=== PATIENT | male | born 1940 | race Caucasian/White ===

== ENCOUNTER 2017-01-20 18:11 | Emergency (ER) | payer OTHER ==
[~2017-01-20] VITALS: Ht 172.7 cm; Wt 67.5 kg
[~2017-01-20 18:11] MED LIST: ADVAIR HFA120 INHALA IH; ALEVE220 M2 PO; AMOX TR-K CLV1 EAC4 PO; ANTIVERT25 MG PO; ASPIRIN81 M1 PO; ASPIRIN81 M2 PO; Aspirin E.C. PO; CILOSTAZOL100 MG PO; Ceftin PO; DIAZEPAM2 MG PO; ESOMEPRAZOLE MA40 MG PO; FLOMAX0.4 MG PO; HYDROCODON-ACE1 EAC7 PO; LIPITOR20 MG PO; LOPRESSOR50 MG PO; LOTREL 5/201 CAPSULE PO; MOTRIN400 MG PO; NEXIUM40 MG PO; NORVASC10 MG PO; Norvasc PO; PLETAL100 MG PO; PRILOSEC20 MG PO; PRILOSEC40 MG PO; PROAIR HFA8.5 GM IH; PROTONIX40 MG PO; Pletal PO; RANITIDINE HCL150 M1 PO; TOPROL XL50 MG PO; TRAMADOL HCL50 MG PO; Tylenol Regular Stre PO; ULTRAM50 MG PO; Ultram PO; VITAMIN D31000 UNIT PO; Vitamin D PO
[2017-01-20 19:11] LABS: EOSINOPHIL (%) 1.2 % (0-5); EOSINOPHIL COUNT 0.1 K/uL (0-0.3); HEMATOCRIT 40.7 % (38.0-50.0); IMMATURE GRANULOCYTE (%) 0.3 % (0.0-0.7); INSTRUMENT ABS NEUTROPHIL CT 7.6 K/uL; LYMPHOCYTE COUNT 1.5 K/uL (1.0-2.8); MCH 30.4 PG (29.0-34.0); MCHC 32.9 G/DL (30.0-36.0); MCV 92.3 FL (86-99); MEAN PLAT.VOLUME 12.1 uM^3 (9.0-12.4); MONOCYTE (%) 7.2 % (3-12); MONOCYTE COUNT 0.7 K/uL (0-0.8); NEUTROPHIL (%) 75.6 % (45-76); NEUTROPHIL COUNT 7.6 K/uL (1.8-6.4); PLATELET COUNT 176 K/uL (156-360); RBC DIS.WIDTH-CV 13.2 % (11.8-14.6); RBC DIS.WIDTH-SD 44.5 % (39-53); RED BLOOD COUNT 4.41 M/uL (4.00-5.50)
[2017-01-20 19:22] LABS: CHLORIDE 96 mEq/L (99-109); POTASSIUM 3.9 mEq/L (3.7-5.4); SODIUM 133 mEq/L (136-147)
[2017-01-20 19:24] LABS: GLUCOSE 81 mg/dL (70-99)
[2017-01-20 19:26] LABS: ANION GAP 14 MEQ/L (2-14)
[2017-01-20 19:27] LABS: SERUM ETHYL ALCOHOL 211 mg/dL
[2017-01-20 19:28] LABS: GFR ESTIMATE (CALCULATED) > 59 mL/min/
[2017-01-20 19:29] LABS: UREA NITROGEN (BUN) 13 mg/dL (9-23)
[2017-01-20 19:47] LABS: ADD MIUA? YES; BILIRUBIN NEGATIVE; BLOOD SMALL; COLOR STRAW ((YELLOW)); GLUCOSE (STRIP) NEGATIVE; KETONES NEGATIVE; LEUKOCYTES NEGATIVE; NITRITE NEGATIVE; PROTEIN (STRIP) NEGATIVE; SPECIFIC GRAVITY 1.004 (1.000-1.030); UROBILINOGEN 0.2 MG/DL (0.2-1.0)
[2017-01-20 19:56] LABS: AMPHETAMINE NEGATIVE (500 ng/mL); BARBITURATES NEGATIVE (200 ng/mL); BENZODIAZEPINES NEGATIVE (150 ng/mL); COCAINE NEGATIVE (150 ng/mL); INTERNAL CONTROLS VALID? YES; METHADONE NEGATIVE (200 ng/mL); METHAMPHETAMINE NEGATIVE (500 ng/mL); OPIATES (MORPHINE) NEGATIVE (100 ng/mL); OXYCODONE NEGATIVE (100 ng/mL); PHENCYCLIDINE NEGATIVE (25 ng/mL); PROPOXYPHENE NEGATIVE (300 ng/mL); THC CANNABINOIDS NEGATIVE (50 ng/mL); TRICYCLIC ANTIDEPRESSANTS NEGATIVE (300 ng/mL)
[2017-01-20 20:17] LABS: BACTERIA NONE SEEN /HPF; CASTS NONE SEEN /LPF; CRYSTALS NONE SEEN; EPITHELIAL CELLS RARE /HPF; MUCUS NONE SEEN /LPF; RED BLOOD CELLS 0-5 /HPF (0-5); WHITE BLOOD CELLS RARE /HPF (0-5)
[2017-01-20 22:26] VITALS: BP 143/72
== END 2017-01-20 22:27 | disposition home or self-care (01) ==
LOC: EME 18:11
PROVIDERS: Emergency Medicine
DX: S01.81XA Laceration without foreign body of other part of head, initial encounter (principal); S09.8XXA Other specified injuries of head, initial encounter; F10.129 Alcohol abuse with intoxication, unspecified; W18.30XA Fall on same level, unspecified, initial encounter; Z23 Encounter for immunization; J32.0 Chronic maxillary sinusitis; I10 Essential (primary) hypertension; J44.9 Chronic obstructive pulmonary disease, unspecified; Z86.73 Personal history of transient ischemic attack (TIA), and cerebral infarction without residual deficits; Z90.49 Acquired absence of other specified parts of digestive tract; Z79.82 Long term (current) use of aspirin; F17.200 Nicotine dependence, unspecified, uncomplicated; Y90.7 Blood alcohol level of 200-239 mg/100 ml
CPT/HCPCS: 70450; 70486; 80048; 81003; 85025; 99281; 99284; G0480

== ENCOUNTER 2017-06-30 03:35 | Inpatient (IN) | payer OTHER ==
[~2017-06-30] VITALS: Ht 172.7 cm; Wt 79.0 kg
[~2017-06-30 03:35] MED LIST changes: -ASPIRIN81 M2 PO; +LO-DOSE ASPIRIN81 M2 PO
[2017-06-30 04:25] LABS: HEMATOCRIT 37.2 % (38.0-50.0); HEMOGLOBIN 12.7 G/DL (12.5-16.6); MCH 29.9 PG (29.0-34.0); MCHC 34.1 G/DL (30.0-36.0); RBC DIS.WIDTH-CV 13.2 % (11.8-14.6); RBC DIS.WIDTH-SD 42.5 % (39-53); RED BLOOD COUNT 4.25 M/uL (4.00-5.50); WHITE BLOOD COUNT 24.4 K/uL (4.1-10.2)
[2017-06-30 04:26] LABS: MCV 87.5 FL (86-99)
[2017-06-30 04:38] LABS: ALBUMIN 3.4 g/dL (3.2-4.8); CHLORIDE 90 mEq/L (99-109); POTASSIUM 2.8 mEq/L (3.7-5.4); SODIUM 128 mEq/L (136-147)
[2017-06-30 04:41] LABS: GLUCOSE 116 mg/dL (70-99); TOTAL PROTEIN 6.9 g/dL (6.4-8.3)
[2017-06-30 04:43] LABS: TOTAL BILIRUBIN 1.7 mg/dL (0.0-1.0)
[2017-06-30 04:44] LABS: ALKALINE PHOSPHATASE 70 IU/L (3-129); GFR ESTIMATE (CALCULATED) 35 mL/min/ (58.99-99999)
[2017-06-30 04:47] LABS: ALT (GPT) 9 IU/L (3-49); TROP-I INTERPRETATION NEGATIVE; TROPONIN-I 0.02 ng/mL (0.0-0.30)
[2017-06-30 04:48] LABS: LIPASE 13 U/L (1.0-51.0)
[2017-06-30 05:03] LABS: INTER. NORMALIZED RATIO 1.4
[2017-06-30 05:05] LABS: PTT 27.7 SEC (25-37)
[2017-06-30 05:25] LABS: PHOSPHORUS 2.9 mg/dL (2.5-4.9)
[2017-06-30 05:26] LABS: UREA NITROGEN (BUN) 35 mg/dL (9-23)
[2017-06-30 05:27] LABS: AST (GOT) 17 IU/L (2-34)
[2017-06-30 05:29] LABS: MAGNESIUM 0.4 mg/dL (1.3-2.7)
[2017-06-30 06:19] LABS: PLAT.SUFFICIENCY ADEQUATE; PLATELET COUNT 179 K/uL (156-360)
[2017-06-30] MEDS ORDERED: OMEPRAZOLE40 M1 PO (11:34)
[2017-06-30 11:36] VITALS: BP 158/67
[2017-06-30 12:52] VITALS: BP 90/54
[2017-06-30 14:59] LABS: CHLORIDE 99 MEQ/L (99-109); CREATININE 1.7 MG/DL (0.6-1.3); GFR ESTIMATE (CALCULATED) 42 mL/min/ (58.99-99999); GLUCOSE 143 mg/dL (70-99); SODIUM 131 MEQ/L (136-147); UREA NITROGEN (BUN) 28 mg/dL (9-23)
[2017-06-30 15:00] LABS: MAGNESIUM 0.6 mg/dl (1.3-2.7)
[2017-06-30 15:10] VITALS: BP 94/51
[2017-06-30 16:15] VITALS: BP 100/56
[2017-06-30 18:48] LABS: INTACT PARATHYROID HORMONE 45 pg/mL (10-69)
[2017-06-30 19:43] LABS: MAGNESIUM 0.9 mg/dl (1.3-2.7)
[2017-06-30 20:01] VITALS: BP 120/65
[2017-07-01 00:18] VITALS: BP 118/55
[2017-07-01 04:05] VITALS: BP 119/59
[2017-07-01 06:52] LABS: BASOPHIL (%) 0.1 % (0-1); EOSINOPHIL (%) 0.1 % (0-5); HEMATOCRIT 34.8 % (38.0-50.0); HEMOGLOBIN 11.3 G/DL (12.5-16.6); IMMATURE GRANULOCYTE (%) 2.3 % (0.0-0.7); LYMPHOCYTE (%) 4.4 % (15-42); LYMPHOCYTE COUNT 0.7 K/uL (1.0-2.8); MCH 28.9 PG (29.0-34.0); MCHC 32.5 G/DL (30.0-36.0); MONOCYTE (%) 7.8 % (3-12); MONOCYTE COUNT 1.3 K/uL (0-0.8); NEUTROPHIL (%) 85.3 % (45-76); NEUTROPHIL COUNT 13.7 K/uL (1.8-6.4); PLATELET COUNT 161 K/uL (156-360); RBC DIS.WIDTH-CV 13.4 % (11.8-14.6); RBC DIS.WIDTH-SD 44.1 % (39-53); RED BLOOD COUNT 3.91 M/uL (4.00-5.50)
[2017-07-01 06:58] VITALS: BP 122/63
[2017-07-01 07:00] LABS: INTER. NORMALIZED RATIO 1.1
[2017-07-01 07:03] LABS: PTT 26.8 SEC (25-37)
[2017-07-01 07:15] LABS: ALBUMIN 2.8 G/DL (3.2-4.8); ALKALINE PHOSPHATASE 60 IU/L (3-129); ALT (GPT) 7 IU/L (3-49); AST (GOT) 15 IU/L (2-34); CHLORIDE 108 MEQ/L (99-109); GLUCOSE 130 mg/dL (70-99); PHOSPHORUS 1.6 mg/dL (2.5-4.9); POTASSIUM 3.4 MEQ/L (3.7-5.4); SODIUM 137 MEQ/L (136-147); TOTAL BILIRUBIN 0.7 MG/DL (0.0-1.0); UREA NITROGEN (BUN) 15 mg/dL (9-23)
[2017-07-01 07:16] LABS: CREATININE 1.1 MG/DL (0.6-1.3); GFR ESTIMATE (CALCULATED) > 59 mL/min/ (58.99-99999); MAGNESIUM 1.2 mg/dl (1.3-2.7)
[2017-07-01 11:52] VITALS: BP 157/70
[2017-07-01 11:52] LABS: HEMOGLOBIN A1c (GLYCOHEMOGLOB) 5.7 % (Below 5.7)
[2017-07-01 16:21] VITALS: BP 145/67
[2017-07-01 16:26] LABS: APPEARANCE SL.HAZY ((CLEAR)); BILIRUBIN NEGATIVE; BLOOD MODERATE; COLOR YELLOW ((YELLOW)); GLUCOSE (STRIP) NEGATIVE; KETONES NEGATIVE; LEUKOCYTES NEGATIVE; NITRITE NEGATIVE; PROTEIN (STRIP) 30; SPECIFIC GRAVITY 1.019 (1.000-1.030); UROBILINOGEN 0.2 MG/DL (0.2-1.0)
[2017-07-01 16:53] LABS: EPITHELIAL CELLS RARE /HPF; MUCUS RARE /LPF; RED BLOOD CELLS 0-5 /HPF (0-5); WHITE BLOOD CELLS 0-5 /HPF (0-5)
[2017-07-01 16:54] LABS: BACTERIA 1+ /HPF; UCUL ADDED? NO
[2017-07-01 20:51] VITALS: BP 135/74
[2017-07-02 00:16] VITALS: BP 140/78
[2017-07-02 03:55] VITALS: BP 148/84
[2017-07-02 06:18] LABS: BASOPHIL (%) 0.3 % (0-1); EOSINOPHIL (%) 0.6 % (0-5); EOSINOPHIL COUNT 0.1 K/uL (0-0.3); HEMATOCRIT 40.4 % (38.0-50.0); IMMATURE GRANULOCYTE (%) 0.5 % (0.0-0.7); LYMPHOCYTE (%) 7.3 % (15-42); MCH 29.4 PG (29.0-34.0); MCHC 32.2 G/DL (30.0-36.0); MCV 91.4 FL (86-99); MONOCYTE (%) 7.5 % (3-12); MONOCYTE COUNT 1.1 K/uL (0-0.8); NEUTROPHIL (%) 83.8 % (45-76); NEUTROPHIL COUNT 11.7 K/uL (1.8-6.4); PLATELET COUNT 191 K/uL (156-360); RBC DIS.WIDTH-CV 13.6 % (11.8-14.6); RED BLOOD COUNT 4.42 M/uL (4.00-5.50)
[2017-07-02 06:46] LABS: ALBUMIN 2.8 G/DL (3.2-4.8); ALKALINE PHOSPHATASE 56 IU/L (3-129); ALT (GPT) 10 IU/L (3-49); AST (GOT) 18 IU/L (2-34); CHLORIDE 107 MEQ/L (99-109); GFR ESTIMATE (CALCULATED) > 59 mL/min/ (58.99-99999); GLUCOSE 99 mg/dL (70-99); PHOSPHORUS 1.8 mg/dL (2.5-4.9); POTASSIUM 3.4 MEQ/L (3.7-5.4); SODIUM 137 MEQ/L (136-147); TOTAL BILIRUBIN 0.6 MG/DL (0.0-1.0); TOTAL PROTEIN 5.7 G/DL (6.4-8.3); UREA NITROGEN (BUN) 6 mg/dL (9-23)
[2017-07-02 07:26] VITALS: BP 166/90
[2017-07-02 11:08] VITALS: BP 133/63
[2017-07-02 20:00] VITALS: BP 165/82
[2017-07-02 23:52] VITALS: BP 146/73
[2017-07-03 04:14] VITALS: BP 137/65
[2017-07-03 06:52] LABS: BASOPHIL (%) 0.3 % (0-1); EOSINOPHIL COUNT 0.1 K/uL (0-0.3); HEMATOCRIT 34.6 % (38.0-50.0); HEMOGLOBIN 11.2 G/DL (12.5-16.6); IMMATURE GRANULOCYTE (%) 0.6 % (0.0-0.7); LYMPHOCYTE (%) 5.8 % (15-42); LYMPHOCYTE COUNT 0.8 K/uL (1.0-2.8); MCH 29.3 PG (29.0-34.0); MCHC 32.4 G/DL (30.0-36.0); MCV 90.6 FL (86-99); MONOCYTE (%) 8.7 % (3-12); MONOCYTE COUNT 1.2 K/uL (0-0.8); NEUTROPHIL (%) 83.6 % (45-76); NEUTROPHIL COUNT 11.9 K/uL (1.8-6.4); NRBC (%) 0.4 /100 WBC (0-0); PLATELET COUNT 238 K/uL (156-360); RBC DIS.WIDTH-CV 13.5 % (11.8-14.6); RBC DIS.WIDTH-SD 45.1 % (39-53); RED BLOOD COUNT 3.82 M/uL (4.00-5.50); WHITE BLOOD COUNT 14.3 K/uL (4.1-10.2)
[2017-07-03 07:07] VITALS: BP 154/72
[2017-07-03 07:22] LABS: ALBUMIN 2.7 G/DL (3.2-4.8); ALKALINE PHOSPHATASE 62 IU/L (3-129); ALT (GPT) 10 IU/L (3-49); AST (GOT) 15 IU/L (2-34); CHLORIDE 104 MEQ/L (99-109); CREATININE 0.9 MG/DL (0.6-1.3); DIRECT BILIRUBIN 0.2 mg/dL (0.0-0.3); GFR ESTIMATE (CALCULATED) > 59 mL/min/ (58.99-99999); GLUCOSE 116 mg/dL (70-99); PHOSPHORUS 1.8 mg/dL (2.5-4.9); SODIUM 136 MEQ/L (136-147); TOTAL BILIRUBIN 0.7 MG/DL (0.0-1.0); TOTAL PROTEIN 5.4 G/DL (6.4-8.3); UREA NITROGEN (BUN) 6 mg/dL (9-23)
[2017-07-03 11:51] VITALS: BP 124/80
[2017-07-03 17:01] VITALS: BP 136/73
[2017-07-03 20:25] VITALS: BP 158/82
[2017-07-04 00:06] VITALS: BP 142/73
[2017-07-04 04:17] VITALS: BP 177/81
[2017-07-04 06:36] LABS: HEMATOCRIT 33.7 % (38.0-50.0); HEMOGLOBIN 11.2 G/DL (12.5-16.6); MCH 29.7 PG (29.0-34.0); MCHC 33.2 G/DL (30.0-36.0); MCV 89.4 FL (86-99); RBC DIS.WIDTH-CV 13.5 % (11.8-14.6); RBC DIS.WIDTH-SD 44.4 % (39-53); RED BLOOD COUNT 3.77 M/uL (4.00-5.50); WHITE BLOOD COUNT 12.9 K/uL (4.1-10.2)
[2017-07-04 07:06] LABS: PLAT.SUFFICIENCY ADEQUATE; PLATELET COUNT 251 K/uL (156-360)
[2017-07-04 07:14] LABS: ALBUMIN 2.8 G/DL (3.2-4.8); ALKALINE PHOSPHATASE 55 IU/L (3-129); CHLORIDE 98 MEQ/L (99-109); CREATININE 0.9 MG/DL (0.6-1.3); GFR ESTIMATE (CALCULATED) > 59 mL/min/ (58.99-99999); GLUCOSE 120 mg/dL (70-99); POTASSIUM 3.8 MEQ/L (3.7-5.4); SODIUM 136 MEQ/L (136-147); TOTAL BILIRUBIN 0.6 MG/DL (0.0-1.0); TOTAL PROTEIN 5.5 G/DL (6.4-8.3); UREA NITROGEN (BUN) 6 mg/dL (9-23)
[2017-07-04 07:16] LABS: ALT (GPT) 43 IU/L (3-49); AST (GOT) 78 IU/L (2-34)
[2017-07-04 07:30] VITALS: BP 152/85
[2017-07-04 12:03] VITALS: BP 157/88
[2017-07-04 19:55] VITALS: BP 126/72
[2017-07-04 23:40] VITALS: BP 143/79
[2017-07-05 03:45] VITALS: BP 146/77
[2017-07-05 07:23] LABS: BASOPHIL (%) 0.1 % (0-1); EOSINOPHIL (%) 0.1 % (0-5); HEMATOCRIT 31.6 % (38.0-50.0); HEMOGLOBIN 10.2 G/DL (12.5-16.6); IMMATURE GRANULOCYTE (%) 0.7 % (0.0-0.7); LYMPHOCYTE (%) 5.1 % (15-42); LYMPHOCYTE COUNT 0.7 K/uL (1.0-2.8); MCH 28.7 PG (29.0-34.0); MCHC 32.3 G/DL (30.0-36.0); MONOCYTE (%) 8.5 % (3-12); MONOCYTE COUNT 1.1 K/uL (0-0.8); NEUTROPHIL (%) 85.5 % (45-76); NEUTROPHIL COUNT 11.4 K/uL (1.8-6.4); PLATELET COUNT 228 K/uL (156-360); RBC DIS.WIDTH-CV 13.5 % (11.8-14.6); RBC DIS.WIDTH-SD 44.3 % (39-53); RED BLOOD COUNT 3.55 M/uL (4.00-5.50); WHITE BLOOD COUNT 13.3 K/uL (4.1-10.2)
[2017-07-05 07:55] LABS: CHLORIDE 102 MEQ/L (99-109); CREATININE 0.9 MG/DL (0.6-1.3); GFR ESTIMATE (CALCULATED) > 59 mL/min/ (58.99-99999); GLUCOSE 117 mg/dL (70-99); POTASSIUM 3.7 MEQ/L (3.7-5.4); SODIUM 138 MEQ/L (136-147); UREA NITROGEN (BUN) 6 mg/dL (9-23)
[2017-07-05 08:21] VITALS: BP 135/83
[2017-07-05 11:25] VITALS: BP 130/71
[2017-07-05 14:21] VITALS: BP 120/63
[2017-07-05 20:03] VITALS: BP 153/80
[2017-07-05 23:44] VITALS: BP 121/60
[2017-07-06] VITALS (7 sets, daily range): BP systolic 109–142; BP diastolic 58–79
[2017-07-06 05:50] LABS: BASOPHIL (%) 0.1 % (0-1); EOSINOPHIL (%) 1.4 % (0-5); EOSINOPHIL COUNT 0.2 K/uL (0-0.3); HEMATOCRIT 31.4 % (38.0-50.0); HEMOGLOBIN 10.3 G/DL (12.5-16.6); LYMPHOCYTE (%) 6.8 % (15-42); LYMPHOCYTE COUNT 0.9 K/uL (1.0-2.8); MCH 29.9 PG (29.0-34.0); MCHC 32.8 G/DL (30.0-36.0); MONOCYTE (%) 7.5 % (3-12); NEUTROPHIL (%) 83.2 % (45-76); PLATELET COUNT 220 K/uL (156-360); RBC DIS.WIDTH-CV 13.8 % (11.8-14.6); RBC DIS.WIDTH-SD 46.1 % (39-53); RED BLOOD COUNT 3.45 M/uL (4.00-5.50); WHITE BLOOD COUNT 13.2 K/uL (4.1-10.2)
[2017-07-06 06:30] LABS: CHLORIDE 103 MEQ/L (99-109); CREATININE 0.8 MG/DL (0.6-1.3); GFR ESTIMATE (CALCULATED) > 59 mL/min/ (58.99-99999); GLUCOSE 95 mg/dL (70-99); POTASSIUM 3.6 MEQ/L (3.7-5.4); SODIUM 138 MEQ/L (136-147); UREA NITROGEN (BUN) 5 mg/dL (9-23)
[2017-07-07 04:47] VITALS: BP 123/68
[2017-07-07 06:40] LABS: BASOPHIL (%) 0.2 % (0-1); EOSINOPHIL (%) 0.1 % (0-5); HEMOGLOBIN 10.8 G/DL (12.5-16.6); IMMATURE GRANULOCYTE (%) 0.6 % (0.0-0.7); LYMPHOCYTE (%) 3.1 % (15-42); LYMPHOCYTE COUNT 0.3 K/uL (1.0-2.8); MCH 28.7 PG (29.0-34.0); MCHC 31.8 G/DL (30.0-36.0); MCV 90.4 FL (86-99); MONOCYTE (%) 1.4 % (3-12); MONOCYTE COUNT 0.2 K/uL (0-0.8); NEUTROPHIL (%) 94.6 % (45-76); NEUTROPHIL COUNT 10.2 K/uL (1.8-6.4); RBC DIS.WIDTH-CV 13.8 % (11.8-14.6); RBC DIS.WIDTH-SD 46.3 % (39-53); RED BLOOD COUNT 3.76 M/uL (4.00-5.50); WHITE BLOOD COUNT 10.8 K/uL (4.1-10.2)
[2017-07-07 06:41] LABS: PLATELET COUNT 287 K/uL (156-360)
[2017-07-07 07:05] LABS: ALBUMIN 2.5 G/DL (3.2-4.8); ALKALINE PHOSPHATASE 63 IU/L (3-129); ALT (GPT) 23 IU/L (3-49); CHLORIDE 103 MEQ/L (99-109); CREATININE 0.8 MG/DL (0.6-1.3); GFR ESTIMATE (CALCULATED) > 59 mL/min/ (58.99-99999); POTASSIUM 4.3 MEQ/L (3.7-5.4); SODIUM 139 MEQ/L (136-147); TOTAL PROTEIN 5.5 G/DL (6.4-8.3); UREA NITROGEN (BUN) 6 mg/dL (9-23)
[2017-07-07 07:07] LABS: AST (GOT) 21 IU/L (2-34); GLUCOSE 156 mg/dL (70-99); MAGNESIUM 1.6 mg/dl (1.3-2.7); TOTAL BILIRUBIN 0.4 MG/DL (0.0-1.0)
[2017-07-07 09:03] VITALS: BP 148/76
[2017-07-07 19:25] VITALS: BP 162/85
[2017-07-07 23:03] VITALS: BP 147/80
[2017-07-08 04:18] VITALS: BP 156/86
[2017-07-08 08:30] VITALS: BP 157/76
[2017-07-08 12:31] VITALS: BP 134/76
[2017-07-08 15:28] VITALS: BP 133/70
[2017-07-08 19:54] VITALS: BP 142/74
[2017-07-08 23:29] VITALS: BP 145/70
[2017-07-09 03:39] VITALS: BP 154/70
[2017-07-09 07:45] VITALS: BP 152/78
[2017-07-09 11:50] VITALS: BP 171/76
[2017-07-09 18:43] LABS: HEMATOCRIT 34.9 % (38.0-50.0); HEMOGLOBIN 11.4 G/DL (12.5-16.6); MCH 29.2 PG (29.0-34.0); MCHC 32.7 G/DL (30.0-36.0); MCV 89.5 FL (86-99); NRBC (%) 0.5 /100 WBC (0-0); RBC DIS.WIDTH-CV 13.8 % (11.8-14.6); RBC DIS.WIDTH-SD 45.4 % (39-53); WHITE BLOOD COUNT 10.5 K/uL (4.1-10.2)
[2017-07-09 19:07] LABS: ALKALINE PHOSPHATASE 80 IU/L (3-129); CHLORIDE 95 MEQ/L (99-109); CREATININE 0.7 MG/DL (0.6-1.3); GFR ESTIMATE (CALCULATED) > 59 mL/min/ (58.99-99999); GLUCOSE 186 mg/dL (70-99); POTASSIUM 4.3 MEQ/L (3.7-5.4); SODIUM 134 MEQ/L (136-147); TOTAL BILIRUBIN 0.4 MG/DL (0.0-1.0); TOTAL PROTEIN 6.2 G/DL (6.4-8.3); UREA NITROGEN (BUN) 11 mg/dL (9-23)
[2017-07-09 19:08] LABS: ALT (GPT) 58 IU/L (3-49); AST (GOT) 58 IU/L (2-34)
[2017-07-09 19:10] LABS: HEMATOLOGY COMMENT 1 SN; PLAT.SUFFICIENCY ADEQUATE; PLATELET COUNT 326 K/uL (156-360)
[2017-07-09 20:15] VITALS: BP 127/60
[2017-07-09 23:59] VITALS: BP 142/71
[2017-07-10 03:34] VITALS: BP 137/72
[2017-07-10 06:29] LABS: CREATININE 0.9 MG/DL (0.6-1.3); GFR ESTIMATE (CALCULATED) > 59 mL/min/ (58.99-99999)
[2017-07-10 07:57] VITALS: BP 133/64
[2017-07-10 11:25] VITALS: BP 112/73
[2017-07-10 16:35] VITALS: BP 124/69
[2017-07-10 20:18] VITALS: BP 122/65
[2017-07-10 23:34] VITALS: BP 116/80
[2017-07-11 04:36] VITALS: BP 126/61
[2017-07-11 04:41] VITALS: BP 134/83
[2017-07-11 05:45] LABS: MAGNESIUM 1.7 mg/dl (1.3-2.7)
[2017-07-11 05:57] LABS: PHOSPHORUS 4.5 mg/dL (2.5-4.9)
[2017-07-11 08:32] VITALS: BP 126/65
[2017-07-11 13:41] VITALS: BP 102/58
[2017-07-11] MEDS ORDERED: LOPRESSOR25 MG PO (15:13)
[2017-07-11] MEDS ORDERED: DUONEB 2.5-0.5 M3 ML AEROSOL (15:13)
[2017-07-11] MEDS ORDERED: TYLENOL REGULA325 MG PO (15:14)
[2017-07-11] MEDS ORDERED: AMLODIPINE BESYL5 MG PO (15:14)
[2017-07-11] MEDS ORDERED: FOLIC ACID1 MG PO (15:15)
[2017-07-11] MEDS ORDERED: Thiamine,Vitamin B1 PO (15:15)
[2017-07-11 15:39] VITALS: BP 116/64
== END 2017-07-11 19:34 | DRG 853 ==
LOC: EME 03:35 → 3EAST 06:30 → EDOF 06:30 → 2EASTP 06:30 → ENRESERV 06:39 → EDOF 07:07 → ENRESERV 09:40 → 2EASTP 11:37 → 2EAST 07-04 16:13 → ENRESERV 07-04 16:13 → 3EAST 07-05 14:04
PROVIDERS: Emergency Medicine; Internal Medicine; Surgery
DX: A41.9 Sepsis, unspecified organism (principal); K80.00 Calculus of gallbladder with acute cholecystitis without obstruction; N17.9 Acute kidney failure, unspecified; E87.2 Acidosis; E87.1 Hypo-osmolality and hyponatremia; E87.6 Hypokalemia; E83.42 Hypomagnesemia; E83.51 Hypocalcemia; E86.0 Dehydration; E86.1 Hypovolemia; E87.8 Other disorders of electrolyte and fluid balance, not elsewhere classified; J44.1 Chronic obstructive pulmonary disease with (acute) exacerbation; J69.0 Pneumonitis due to inhalation of food and vomit; I47.2 Ventricular tachycardia; T81.82XA Emphysema (subcutaneous) resulting from a procedure, initial encounter; R41.0 Disorientation, unspecified; T40.605A Adverse effect of unspecified narcotics, initial encounter; R09.02 Hypoxemia; L72.0 Epidermal cyst; K82.8 Other specified diseases of gallbladder; D64.9 Anemia, unspecified; I11.9 Hypertensive heart disease without heart failure; I25.10 Atherosclerotic heart disease of native coronary artery without angina pectoris; E78.5 Hyperlipidemia, unspecified; I49.3 Ventricular premature depolarization; F10.10 Alcohol abuse, uncomplicated; I73.9 Peripheral vascular disease, unspecified; K21.9 Gastro-esophageal reflux disease without esophagitis; N40.1 Benign prostatic hyperplasia with lower urinary tract symptoms; F17.210 Nicotine dependence, cigarettes, uncomplicated; Z86.718 Personal history of other venous thrombosis and embolism; Z86.73 Personal history of transient ischemic attack (TIA), and cerebral infarction without residual deficits; Z87.440 Personal history of urinary (tract) infections; Z79.82 Long term (current) use of aspirin; Z79.02 Long term (current) use of antithrombotics/antiplatelets
CPT/HCPCS: 70450; 71045; 71046; 74176; 74230; 78227; 80048; 80048 91; 80053; 80202; 81003; 82248; 82306; 82310; 82565; 83036; 83605; 83690; 83735; 83880; 83970; 84100; 84153; 84484; 85025; 85027; 85610; 85730; 87040; 88304; 92610 GN; 92611 GN; 93005; 94640; 94640 76; 94760; 94799; 97530 GO; 97530 GP; 99202; 99281; 99285; A9537; J0456; J0610; J1100; J1170; J1650; J2270; J2405; J2543; J2920; J3370; J3411; J3475; J3480; J3486; J7030; J7040; J7042; J7050; J7512; S0020; S0028; S0030; S0074

== ENCOUNTER 2017-08-26 08:53 | Inpatient (IN) | payer OTHER ==
[~2017-08-26] VITALS: Ht 172.7 cm; Wt 65.6 kg
[~2017-08-26 08:53] MED LIST changes: +AMLODIPINE BESYL5 MG PO; +DUONEB 2.5-0.5 M3 ML AEROSOL; +FOLIC ACID1 MG PO; +LOPRESSOR25 MG PO; +OMEPRAZOLE40 M1 PO; +TYLENOL REGULA325 MG PO; +Thiamine,Vitamin B1 PO
[2017-08-26 09:42] LABS: HEMATOCRIT 37.3 % (38.0-50.0); MCH 28.6 PG (29.0-34.0); MCHC 32.2 G/DL (30.0-36.0); PLATELET COUNT 228 K/uL (156-360); RBC DIS.WIDTH-CV 16.2 % (11.8-14.6); RBC DIS.WIDTH-SD 52.7 % (39-53); WHITE BLOOD COUNT 7.8 K/uL (4.1-10.2)
[2017-08-26 09:44] LABS: RED BLOOD COUNT 4.19 M/uL (4.00-5.50)
[2017-08-26 09:52] LABS: ALBUMIN 3.5 g/dL (3.2-4.8); CHLORIDE 103 mEq/L (99-109); POTASSIUM 3.6 mEq/L (3.7-5.4); SODIUM 141 mEq/L (136-147)
[2017-08-26 09:55] LABS: GLUCOSE 98 mg/dL (70-99); TOTAL PROTEIN 7.1 g/dL (6.4-8.3)
[2017-08-26 09:57] LABS: TOTAL BILIRUBIN 0.4 mg/dL (0.0-1.0)
[2017-08-26 09:58] LABS: ALKALINE PHOSPHATASE 103 IU/L (3-129)
[2017-08-26 09:59] LABS: CREATININE 1.2 mg/dL (0.6-1.3); GFR ESTIMATE (CALCULATED) > 59 mL/min/ (58.99-99999)
[2017-08-26 10:00] LABS: AST (GOT) 17 IU/L (2-34); DIRECT BILIRUBIN 0.2 mg/dL (0.0-0.3); UREA NITROGEN (BUN) 10 mg/dL (9-23)
[2017-08-26 10:01] LABS: ALT (GPT) 11 IU/L (3-49)
[2017-08-26] MEDS ORDERED: LOSARTAN POTASS50 MG PO (12:31)
[2017-08-26] MEDS ORDERED: AMIODARONE HCL200 MG PO (12:31)
[2017-08-26] MEDS ORDERED: BREO ELLIPTA I1 EACH IH (15:00)
[2017-08-26 15:20] VITALS: BP 165/74
[2017-08-26 20:02] VITALS: BP 140/74
[2017-08-27 00:15] VITALS: BP 154/73
[2017-08-27 04:50] VITALS: BP 152/70
[2017-08-27 08:11] VITALS: BP 141/75
[2017-08-27 11:34] VITALS: BP 144/74
[2017-08-27 12:20] LABS: BASOPHIL (%) 0.9 % (0-1); BASOPHIL COUNT 0.1 K/uL (0-0.1); EOSINOPHIL COUNT 0.2 K/uL (0-0.3); HEMATOCRIT 38.6 % (38.0-50.0); HEMOGLOBIN 11.8 G/DL (12.5-16.6); IMMATURE GRANULOCYTE (%) 0.2 % (0.0-0.7); LYMPHOCYTE (%) 16.6 % (15-42); LYMPHOCYTE COUNT 1.3 K/uL (1.0-2.8); MCH 27.3 PG (29.0-34.0); MCHC 30.6 G/DL (30.0-36.0); MCV 89.1 FL (86-99); MONOCYTE (%) 8.2 % (3-12); MONOCYTE COUNT 0.7 K/uL (0-0.8); NEUTROPHIL (%) 71.1 % (45-76); NEUTROPHIL COUNT 5.8 K/uL (1.8-6.4); PLATELET COUNT 241 K/uL (156-360); RBC DIS.WIDTH-CV 16.1 % (11.8-14.6); RBC DIS.WIDTH-SD 52.9 % (39-53); RED BLOOD COUNT 4.33 M/uL (4.00-5.50); WHITE BLOOD COUNT 8.1 K/uL (4.1-10.2)
[2017-08-27 12:47] LABS: CHLORIDE 102 MEQ/L (99-109); CREATININE 1.1 MG/DL (0.6-1.3); GFR ESTIMATE (CALCULATED) > 59 mL/min/ (58.99-99999); GLUCOSE 80 mg/dL (70-99); POTASSIUM 3.7 MEQ/L (3.7-5.4); SODIUM 143 MEQ/L (136-147); UREA NITROGEN (BUN) 8 mg/dL (9-23)
[2017-08-27 15:26] LABS: APPEARANCE CLEAR ((CLEAR)); BILIRUBIN NEGATIVE; BLOOD SMALL; COLOR YELLOW ((YELLOW)); GLUCOSE (STRIP) NEGATIVE; KETONES 5; LEUKOCYTES MODERATE; NITRITE POSITIVE; PROTEIN (STRIP) NEGATIVE; SPECIFIC GRAVITY 1.012 (1.000-1.030)
[2017-08-27 15:28] VITALS: BP 144/69
[2017-08-27 15:36] LABS: BACTERIA NONE SEEN /HPF; EPITHELIAL CELLS NONE SEEN /HPF; MUCUS NONE SEEN /LPF; RED BLOOD CELLS 0-5 /HPF (0-5); WHITE BLOOD CELLS 40-50 /HPF (0-5)
[2017-08-27 23:05] VITALS: BP 145/69
[2017-08-28 06:37] LABS: BASOPHIL (%) 0.4 % (0-1); EOSINOPHIL (%) 3.3 % (0-5); EOSINOPHIL COUNT 0.3 K/uL (0-0.3); HEMATOCRIT 36.2 % (38.0-50.0); HEMOGLOBIN 11.4 G/DL (12.5-16.6); IMMATURE GRANULOCYTE (%) 0.5 % (0.0-0.7); LYMPHOCYTE (%) 12.2 % (15-42); MCH 27.6 PG (29.0-34.0); MCHC 31.5 G/DL (30.0-36.0); MCV 87.7 FL (86-99); MONOCYTE (%) 9.3 % (3-12); MONOCYTE COUNT 0.8 K/uL (0-0.8); NEUTROPHIL (%) 74.3 % (45-76); NEUTROPHIL COUNT 6.1 K/uL (1.8-6.4); PLATELET COUNT 229 K/uL (156-360); RBC DIS.WIDTH-SD 51.6 % (39-53); RED BLOOD COUNT 4.13 M/uL (4.00-5.50); WHITE BLOOD COUNT 8.2 K/uL (4.1-10.2)
[2017-08-28 07:20] LABS: CHLORIDE 99 MEQ/L (99-109); CREATININE 1.1 MG/DL (0.6-1.3); GFR ESTIMATE (CALCULATED) > 59 mL/min/ (58.99-99999); POTASSIUM 3.2 MEQ/L (3.7-5.4); SODIUM 143 MEQ/L (136-147); UREA NITROGEN (BUN) 7 mg/dL (9-23)
[2017-08-28 07:27] LABS: GLUCOSE 102 mg/dL (70-99)
[2017-08-28 08:12] VITALS: BP 142/67
[2017-08-28 15:33] VITALS: BP 137/67
[2017-08-28 23:28] VITALS: BP 117/61
[2017-08-29 06:41] LABS: BASOPHIL (%) 0.5 % (0-1); EOSINOPHIL (%) 2.5 % (0-5); EOSINOPHIL COUNT 0.2 K/uL (0-0.3); HEMOGLOBIN 11.3 G/DL (12.5-16.6); IMMATURE GRANULOCYTE (%) 0.4 % (0.0-0.7); LYMPHOCYTE (%) 11.8 % (15-42); LYMPHOCYTE COUNT 0.9 K/uL (1.0-2.8); MCH 27.6 PG (29.0-34.0); MCHC 31.4 G/DL (30.0-36.0); MONOCYTE (%) 10.8 % (3-12); MONOCYTE COUNT 0.9 K/uL (0-0.8); NEUTROPHIL COUNT 5.9 K/uL (1.8-6.4); PLATELET COUNT 220 K/uL (156-360); RBC DIS.WIDTH-CV 16.2 % (11.8-14.6); RBC DIS.WIDTH-SD 52.2 % (39-53); RED BLOOD COUNT 4.09 M/uL (4.00-5.50)
[2017-08-29 07:06] LABS: ALBUMIN 3.2 G/DL (3.2-4.8); CHLORIDE 100 MEQ/L (99-109); GFR ESTIMATE (CALCULATED) > 59 mL/min/ (58.99-99999); GLUCOSE 102 mg/dL (70-99); PHOSPHORUS 3.9 mg/dL (2.5-4.9); POTASSIUM 3.2 MEQ/L (3.7-5.4); SODIUM 143 MEQ/L (136-147); UREA NITROGEN (BUN) 7 mg/dL (9-23)
[2017-08-29 07:13] VITALS: BP 156/65
[2017-08-29 12:00] VITALS: BP 163/71
[2017-08-29 17:20] VITALS: BP 142/74
[2017-08-29 19:51] VITALS: BP 150/70
[2017-08-30] VITALS (7 sets, daily range): BP systolic 102–148; BP diastolic 56–80
[2017-08-30 09:44] LABS: BASOPHIL (%) 0.4 % (0-1); EOSINOPHIL (%) 2.1 % (0-5); EOSINOPHIL COUNT 0.2 K/uL (0-0.3); HEMATOCRIT 36.6 % (38.0-50.0); HEMOGLOBIN 11.4 G/DL (12.5-16.6); IMMATURE GRANULOCYTE (%) 0.3 % (0.0-0.7); LYMPHOCYTE (%) 10.7 % (15-42); LYMPHOCYTE COUNT 0.8 K/uL (1.0-2.8); MCH 27.6 PG (29.0-34.0); MCHC 31.1 G/DL (30.0-36.0); MCV 88.6 FL (86-99); MONOCYTE (%) 11.4 % (3-12); MONOCYTE COUNT 0.9 K/uL (0-0.8); NEUTROPHIL (%) 75.1 % (45-76); NEUTROPHIL COUNT 5.7 K/uL (1.8-6.4); PLATELET COUNT 225 K/uL (156-360); RBC DIS.WIDTH-CV 16.2 % (11.8-14.6); RBC DIS.WIDTH-SD 53.1 % (39-53); RED BLOOD COUNT 4.13 M/uL (4.00-5.50); WHITE BLOOD COUNT 7.6 K/uL (4.1-10.2)
[2017-08-30 10:31] LABS: CHLORIDE 101 MEQ/L (99-109); CREATININE 1.1 MG/DL (0.6-1.3); GFR ESTIMATE (CALCULATED) > 59 mL/min/ (58.99-99999); GLUCOSE 110 mg/dL (70-99); POTASSIUM 3.9 MEQ/L (3.7-5.4); SODIUM 140 MEQ/L (136-147); UREA NITROGEN (BUN) 10 mg/dL (9-23)
[2017-08-31 04:00] VITALS: BP 126/60
[2017-08-31 07:27] VITALS: BP 139/67
[2017-08-31 11:54] VITALS: BP 148/66
[2017-08-31 15:38] VITALS: BP 150/67
[2017-08-31 19:43] VITALS: BP 122/53
[2017-08-31 23:38] VITALS: BP 135/57
[2017-09-01 04:34] VITALS: BP 157/69
[2017-09-01 06:54] LABS: HEMATOCRIT 33.4 % (38.0-50.0); HEMOGLOBIN 10.5 G/DL (12.5-16.6); MCH 27.6 PG (29.0-34.0); MCHC 31.4 G/DL (30.0-36.0); MCV 87.7 FL (86-99); PLATELET COUNT 211 K/uL (156-360); RBC DIS.WIDTH-CV 15.5 % (11.8-14.6); RED BLOOD COUNT 3.81 M/uL (4.00-5.50); WHITE BLOOD COUNT 5.8 K/uL (4.1-10.2)
[2017-09-01 07:22] LABS: CHLORIDE 101 MEQ/L (99-109); CREATININE 0.9 MG/DL (0.6-1.3); GFR ESTIMATE (CALCULATED) > 59 mL/min/ (58.99-99999); GLUCOSE 93 mg/dL (70-99); POTASSIUM 3.4 MEQ/L (3.7-5.4); SODIUM 141 MEQ/L (136-147); UREA NITROGEN (BUN) 6 mg/dL (9-23)
[2017-09-01 08:20] VITALS: BP 127/69
[2017-09-01 11:18] VITALS: BP 130/60
[2017-09-01 13:19] LABS: APPEARANCE CLEAR ((CLEAR)); BILIRUBIN NEGATIVE; BLOOD SMALL; COLOR AMBER ((YELLOW)); GLUCOSE (STRIP) NEGATIVE; KETONES NEGATIVE; LEUKOCYTES LARGE; NITRITE POSITIVE; PROTEIN (STRIP) NEGATIVE; SPECIFIC GRAVITY 1.004 (1.000-1.030)
[2017-09-01 13:48] LABS: BACTERIA RARE /HPF; EPITHELIAL CELLS NONE SEEN /HPF; MUCUS TRACE /LPF; RED BLOOD CELLS 0-5 /HPF (0-5); WHITE BLOOD CELLS TNTC /HPF (0-5)
[2017-09-01 16:17] VITALS: BP 145/68
[2017-09-01 19:42] VITALS: BP 137/70
[2017-09-01 23:56] VITALS: BP 148/67
[2017-09-02 05:01] VITALS: BP 181/77
[2017-09-02 05:14] VITALS: BP 152/64
[2017-09-02 08:31] VITALS: BP 148/72
[2017-09-02 12:14] VITALS: BP 161/70
[2017-09-02 20:01] VITALS: BP 136/60
[2017-09-02 23:46] VITALS: BP 151/67
[2017-09-03 03:40] VITALS: BP 169/85
[2017-09-03 08:00] VITALS: BP 169/81
[2017-09-03 11:55] VITALS: BP 134/67
[2017-09-03 15:25] VITALS: BP 149/70
[2017-09-03 19:13] VITALS: BP 130/62
[2017-09-03 23:06] VITALS: BP 160/77
[2017-09-04 03:55] VITALS: BP 150/69
[2017-09-04 07:12] VITALS: BP 159/68
[2017-09-04 07:18] LABS: CHLORIDE 102 MEQ/L (99-109); CREATININE 1.1 MG/DL (0.6-1.3); GFR ESTIMATE (CALCULATED) > 59 mL/min/ (58.99-99999); GLUCOSE 83 mg/dL (70-99); POTASSIUM 3.4 MEQ/L (3.7-5.4); SODIUM 144 MEQ/L (136-147); UREA NITROGEN (BUN) 9 mg/dL (9-23)
[2017-09-04] MEDS ORDERED: CIPRO500 MG PO (09:15)
[2017-09-04] MEDS ORDERED: ENDOCET 5-3251 EACH PO (09:16)
[2017-09-04 13:10] VITALS: BP 136/66
== END 2017-09-04 14:11 | DRG 330 ==
LOC: EME 08:53 → EDOF 11:40 → 3EAST 11:40 → ENRESERV 12:32 → 3EAST 15:20
PROVIDERS: Physician Assistant; Physician Assistant Medical; Physician Assistant Surgical; Surgery
DX: K56.50 Intestinal adhesions [bands], unspecified as to partial versus complete obstruction (principal); E78.5 Hyperlipidemia, unspecified; I10 Essential (primary) hypertension; J44.9 Chronic obstructive pulmonary disease, unspecified; E83.51 Hypocalcemia; D64.9 Anemia, unspecified; I25.10 Atherosclerotic heart disease of native coronary artery without angina pectoris; K56.2 Volvulus; T83.511A Infection and inflammatory reaction due to indwelling urethral catheter, initial encounter; N39.0 Urinary tract infection, site not specified; K21.9 Gastro-esophageal reflux disease without esophagitis; I73.9 Peripheral vascular disease, unspecified; Y84.6 Urinary catheterization as the cause of abnormal reaction of the patient, or of later complication, without mention of misadventure at the time of the procedure; Z86.73 Personal history of transient ischemic attack (TIA), and cerebral infarction without residual deficits; Z79.899 Other long term (current) drug therapy; Z79.82 Long term (current) use of aspirin; Z87.440 Personal history of urinary (tract) infections; Z87.891 Personal history of nicotine dependence; Z90.49 Acquired absence of other specified parts of digestive tract
CPT/HCPCS: 71045; 71046; 74019; 74176; 74177; 80048; 80069; 80076; 81003; 82306; 82330; 84132 91; 85025; 85027; 87077; 87086; 87186; 94640; 94640 76; 94799; 99202; 99281; 99285; J0131; J0330; J0610; J0692; J0696; J1170; J1650; J2270; J2405; J2710; J3010; J3480; J7040; J7050; J7120; J7643; S0074